=== PATIENT | female | born 1975 | race Caucasian/White ===

== ENCOUNTER 2017-01-26 10:50 | Emergency (ER) | payer BC ==
[2017-01-26 12:08] VITALS: BP 94/68
--- NOTE | 2017-01-29 14:01 | ER ---
DATE SEEN: 01/26/2017 TIME SEEN: The patient was seen at 1130 hours. CHIEF COMPLAINT: Left medial anterior foot contusion by a cord that got wrapped around the lawnmower, as she was walking barefoot and mowing the lawn at home. HISTORY OF PRESENT ILLNESS: This happened today, within the last hour and a half. She has mild discomfort and she has brought crutches with her. She has difficulty walking. She is sitting on a wheelchair. PAST MEDICAL HISTORY: Other significant past medical history; fractured her left third toe mowing the lawn. "This is nothing new for me." Mild tenderness intermittently. Otherwise, past medical history includes hysterectomy. No diabetes, heart disease, asthma, or other serious illnesses. MEDICATIONS: None. ALLERGIES: Azithromycin and codeine. REVIEW OF SYSTEMS: Negative. PHYSICAL EXAMINATION: VITAL SIGNS: Blood pressure 128/78, heart rate 75, respirations 14, oxygen saturation 100%, and temperature is 36.6 degrees centigrade. GENERAL: Alert woman with a bright countenance, who is happy in spite of the fact she has discomfort in the left foot. HEENT: Negative. LUNGS: Clear. HEART: Without murmur. ABDOMEN: Soft. No guarding. No discomfort. EXTREMITIES: Left foot, medial dorsum cuneiform 1 and 2 area of swelling, markedly tender. Range of motion of the toes appropriate. No compromised sensation of toes. No capillary fill abnormality. LABORATORY DATA: X-ray reveals no fracture, except there is soft tissue swelling at medial forefoot. DIAGNOSIS: SOFT TISSUE CONTUSION LEFT LATERAL HIND FOOT PLAN: Gradually progressively increase activity as tolerated. Use ice. Tylenol 1000 mg, ibuprofen 600 mg together every 6 hours for breakthrough pain, and Vicodin 12 tablets 1 q.4 hours p.r.n. pain. Follow up with doctor in a week if not improved. No evidence for fracture on the x-ray today. /[id number] [address]
--- NOTE | 2017-01-31 11:50 | CR ---
INDICATION: Trauma left foot. LEFT FOOT, 3 VIEWS: FINDINGS: There is deformity related to the tuft of the distal phalanx of the 3rd toe which has been previously fractured. I think that this is more of a chronic abnormality, as bony margins look sclerotic and eburnated. I do not necessarily see an acute fracture or dislocation as visualized. There is an area of sclerosis in the distal 2nd metatarsal that I think is benign. IMPRESSION: No acute bone or joint abnormality is shown. If the patient should continue to have symptoms or if there is high suspicion that the patient has sustained an acute event, I recommend either short term follow-up radiographs or if necessary, an MRI scan for further evaluation. DARIAN
== END 2017-01-26 12:03 | disposition home or self-care (01) ==
LOC: FB.ED 10:50
DX: S90.32XA Contusion of left foot, initial encounter (principal); Z90.710 Acquired absence of both cervix and uterus; Z88.1 Allergy status to other antibiotic agents; Z88.5 Allergy status to narcotic agent; X58.XXXA Exposure to other specified factors, initial encounter
CPT/HCPCS: 73630-LT; 99283